=== PATIENT | female | born 2000 | race Caucasian/White ===

== ENCOUNTER 2025-04-05 21:44 | Emergency (ER) | payer MEDICAID, SELFPAY ==
--- NOTE | 2025-04-05 21:45 | RT.EKG_ITS ---
APPROVED REPORT Exam: Resting ECG Reason for Exam: chest pain Patient Location: E HR:51 bpm ECG Measurements Heart Rate 51 AXIS VT 127 P 36 QRSd 86 QRS 59 QT 434 T 53 QTc 400 Conclusion Sinus bradycardia...rate< 60 Low voltage, precordial leads...precordial leads <1.0mV Normal axis and interval Normal ST
[2025-04-05 21:46] VITALS: BP 118/77; PULSE 54; RESP 20; TEMP 36.6; O2SAT 95
--- NOTE | 2025-04-05 22:01 | ED.GENADUL_ITS ---
Discharge Plan Disposition Patient Disposition: Home Condition: Good Discharge Details Clinical Impression: Epigastric abdominal pain Primary Care Provider: Deborah William ED Provider: Sam Villanueva [place] Meds and New Rx's Prescriptions: New ondansetron 4 mg tablet,disintegrating 4 mg PO Q8H PRNQty: 10 0RF pantoprazole 20 mg tablet,delayed release (DR/EC) 20 mg PO DAILY Qty: 30 0RF famotidine 20 mg tablet 20 mg PO BID Qty: 20 0RF Continued escitalopram oxalate 20 mg tablet 20 mg PO DAILY [place] root 500 mg 500 mg PO DAILY Patient Comments: Unknown Discharge Instructions Instructions: Abdominal Pain, Adult ED Additional Instructions: You were seen in the ED for epigastric abdominal pain with associated nausea and vomiting. Overall your laboratory studies were reassuring though your liver function was mildly elevated. However, given your response to the medication you received here as well as your description of the pain this seems most likely acid related. Will start you on medication. The famotidine is to be taken twice a day for the next 10 days and tends to work quicker than the pantoprazole which you will take once a day but then continue as this works long-term. The ondansetron is for any recurrent nausea or vomiting. Please make a follow-up appointment with your primary care for 1 to 2 weeks for a recheck. If no improvement consider right upper quadrant ultrasound to evaluate gallbladder. Should have LFTs rechecked short-term as well. Return to ED for fever, new or worsening pain, persistent vomiting, other concerns. Referrals: Deborah William [Primary Care Provider, Medicine] [facility] Mode of arrival: ambulatory . Date/Time Provider Initiated Documentation: 04/05/25 21:51 . Limitations to Documentation: no limitations . Information obtained by: patient and RN notes reviewed . HPI Narrative: Patient presents to ED with complaint of epigastric abdominal pain that has been intermittent but worsening over the course of the week. Now has nausea and a couple days of dry heaves and vomiting. Pain does not radiate into the back or the chest. Seems to be worse after eating and at night. Had been constipated but took a laxative today and now is having diarrhea. Denies any fever, cough, chest pain, shortness of breath, urinary symptoms. She is otherwise healthy, status post in the past. Pain was much worse prior to coming in. Now just a dull discomfort with nausea. She does report vaping and consuming a fair amount of caffeine but denies significant alcohol or NSAID use. Related Data Home Medications ?Medication ?Instructions ?Recorded ?Confirmed escitalopram oxalate 20 mg tablet 20 mg PO DAILY 04/0504/05/25 [place] root 500 mg PO DAILY 04/05/2511/29 famotidine 20 mg tablet 20 mg PO BID #20 tabs ondansetron 4 mg disintegrating 4 mg PO Q8H PRN #10 ta bs 04/06/25 tablet pantoprazole 20 mg tablet,delayed 20 mg PO DAILY #30 t abs 04/06/25 release Previous Rx's ?Medication ?Instructions ?Recorded famotidine 20 mg tablet 20 mg PO BID #20 tabs ondansetron 4 mg disintegrating 4 mg PO Q8H PRN #10 ta bs 04/06/25 tablet pantoprazole 20 mg tablet,delayed 20 mg PO DAILY #30 t abs 04/06/25 release Allergies Allergy/AdvReac Type Severity Reaction Status Date / Time Latex, Natural Rubber Allergy Mild rash Verified 04/05/25 21:54 General Stated Complaint: Abd Prob JAMES: 3 Exam Narrative Exam Narrative: Const: WDWN female in NAD. VS per triage. HEENT: NC/AT. Normal facial exam. Neck: Supple. Trachea midline. Lungs: Normal respiratory effort. Lungs are clear. Cor: RRR without murmur. Good radial pulses. GI: Soft/ND. Mildly tender in the epigastric area. No RUQ tenderness. No Crowley's Neuro: A+O x 3. Normal speech, mentation, gait. Cranial nerves II - XII grossly intact. No gross motor or sensory deficit. Ext: No C/C/E. Course Vital Signs Vital signs: Vital Signs Temperature 97.8 F 04/05/25 21:46 Pulse 54 L 04/05/25 21:46 Respiratory Rate 04/05/25 21:46 Blood Pressure 118/77 04/05/25 21:46 Pulse Oximetry 95 04/05/25 21:46 Temperature 97.8 F 04/05/25 21:46 Temperature Source Oral 04/05/25 21:46 Pulse 54 L 04/05/25 21:46 Respiratory Rate 04/05/25 21:46 Blood Pressure 118/77 04/05/25 21:46 Blood Pressure Position Sitting 04/05/25 21:46 Pulse Oximetry 95 04/05/25 21:46 Oxygen Delivery Method Room Air 04/05/25 21:46 Oxygen Flow Rate 0 04/05/25 21:46 Pain Level 2 04/05/25 21:46 Medical Decision Making Patient presenting to ED with about a week of intermittent but worsening epigastric pain now associated with nausea and vomiting. Pain improved at this time but was much worse prior to coming in. She does vape and drink a lot of caffeine. Suspect this is likely related to acid and reflux. Potentially gallbladder related but nontender in the right upper quadrant at this time. Less likely pancreatitis, cardiac disease, liver disease. An EKG from triage is sinus bradycardia and otherwise normal. Urine is negative. Will establish IV and send abdominal labs and treat with fluids, ondansetron, famotidine, Mylanta. Patient has had resolution of her pain and is feeling much better. Laboratory studies with mildly elevated white count at 11.3, normal hemoglobin and platelets. Chemistries are normal. Liver function with a slight bump in her AST and ALT but normal bilirubin and lipase. Given response of pain and nausea to GI meds this suggest it is likely acid related. However, the slightly bumped LFTs would suggest possible biliary colic. I have discussed close follow-up with primary care for recheck. If continued intermittent symptoms may benefit from right upper quadrant ultrasound. At the very least should have repeat LFTs in a couple of weeks. Will begin on medication for management of acid reflux. Return precautions discussed. Lab Data Lab results narrative: see [facility] ECG Data Attestation: I personally reviewed and interpreted this ECG (s) as follows: Prior ECG tracings: not available for review Interpretation: see EKG/MDM PFSH All Active Problems (Updated 04/06/25 @ 00:01 by Sam Villanueva MD) Epigastric abdominal pain (Acute) Surgical History History of section Social History Smoking/Tobacco Use Status: Current every day Tobacco Type: e-cigarettes Smoking risk assessment performed?: Yes Alcohol Intake: current Alcohol Intake frequency: holidays/special occasions only Alcohol type: hard liquor Drug use: Daily Substance use type: marijuana Housing: house Do you feel safe at home: Yes Do you feel safe in your relationship?: Yes
[2025-04-05] MEDS: Ondansetron 4 MG/2 ML VIAL IVP (22:43)
[2025-04-05] MEDS: Mylanta Suspension 30 ML CUP PO (22:43)
[2025-04-05] MEDS: Famotidine 20 MG/2 ML VIAL IVP (22:43)
[2025-04-05] MEDS: Normal Saline 1,000 ML 1000 ML IV (22:43)
[2025-04-05 22:46] LABS: Abs Immature Grans 0.04 10^3/uL (0.0-0.06); HCT 36.4 % (36.0-46.0); HGB 11.9 g/dL (11.2-15.7); Immature Grans % 0.4 %; MCH 28.4 pg (27.0-33.0); MCHC 32.7 % (32.0-36.0); MCV 87 fL (80-95); MPV 9.7 fL (8.0-11.0); Platelet Count 187 10^3/uL (130-400); RBC 4.19 10^6/uL (3.93-5.22); RDW 14.3 % (11.7-14.6); RDW-SD 45.2 fL; WBC 11.25 10^3/uL (4.4-10.8)
[2025-04-05 23:01] LABS: ALT 123 U/L (14-59); AST 90 U/L (15-37); Albumin 4.5 g/dL (3.4-5.0); Alkaline Phosphatase 62 U/L (46-116); Anion Gap 9.9 mmol/L (3-11); BUN 15 mg/dL (7-18); Bilirubin, Total 0.7 mg/dL (0.2-1.0); CO2 30.1 mmol/L (21.0-32.0); Calcium 9.3 mg/dL (8.5-10.1); Chloride 103 mmol/L (98-107); Estimated GFR 104.15 (mL/min/1.73m2); Glucose 101 mg/dL (74-106); Lipase 26 U/L (<78); Potassium 3.6 mmol/L (3.5-5.1); Sodium 143 mmol/L (136-145); Total Protein 7.5 g/dL (6.4-8.2)
[2025-04-06 00:22] VITALS: BP 92/47; PULSE 52; RESP 16; O2SAT 96
[2025-04-06 00:38] VITALS: BP 92/47; PULSE 52; RESP 16; TEMP 36.6; O2SAT 96
== END 2025-04-06 00:39 | disposition home or self-care (01) ==
PROVIDERS: Emergency Provider Emergency Medicine; PCP Naturopath
DX: R10.13 Epigastric pain (principal); R11.2 Nausea with vomiting, unspecified; R00.1 Bradycardia, unspecified; F17.290 Nicotine dependence, other tobacco product, uncomplicated
CPT/HCPCS: 36415; 80053; 81025; 83690; 93005; 96361; 96374; 96375; 99284; 85025; 93010; J2405